=== PATIENT | female | born 1935 | race Caucasian/White ===

== ENCOUNTER 2017-08-03 14:02 | Outpatient (CLI) | payer MEDICARE ==
--- NOTE | 2017-08-03 16:08 | HP ---
DATE OF SERVICE: 08/03/2017. HISTORY OF PRESENT ILLNESS: Ms. Mirian Horner is a very pleasant 82-year-old accompanied by her imtiaz lynn who presents to the Wound Center for evaluation of 2 pressure ulcerations of the left buttock , which were first noted approximately 1 month ago. The patient's daughter states that Ms. Horner roth s been receiving dressing changes 2 times per week with the assistance of Home Health. The patient's daughter states that the dressing changes consist of a "dry bandage." The patient apparently has be en receiving dressing changes with the assistance of Home Health for the past 3 weeks. The patient i s also taking cephalexin as per Dr. Seay, which was initiated approximately 1 week ago. The lee ent's daughter states that Ms. Horner has a caregiver who is present around the clock. The patient's daughter states that Ms. Horner resides in her own home. PAST MEDICAL HISTORY: 1. Primary lateral sclerosis. 2. Osteoarthritis. 3. Restless leg syndrome. PAST SURGICAL HISTORY: Total right knee arthroplasty. MEDICATIONS: 1. Baclofen. 2. Potassium. 3. Melatonin. 4. Aleve. 5. Mirtazapine. 6. Pramipexole. 7. Dexilant. 8. Tizanidine. 9. Sertraline. 10. Cephalexin. ALLERGIES: No known diagnosed allergies. SOCIAL HISTORY: Social history is negative for tobacco or ETOH use. FAMILY HISTORY: Family history is negative for diabetes mellitus or coronary artery disease. PHYSICAL EXAMINATION: VITAL SIGNS: Temperature 97.8, pulse 68, respirations 18, blood pressure 196/82. GENERAL: An 82-year-old female lying on stretcher in examination room, in no acute distress. HEENT: Normocephalic, atraumatic. NECK: No nuchal rigidity. CHEST: Clear to auscultation. CARDIOVASCULAR: Regular rate and rhythm. ABDOMEN: Soft. EXTREMITIES: No clubbing or cyanosis. BACK: Two ulcerations of the left buttock are present, which measure approximately 2.2 x 2.3 cm and 2.2 x 2.4 cm. The ulceration of the left inferior buttock contains necrotic tissue within the wound margins. The necrotic tissue present within the wound margins was debrided with an excisional full-t hickness debridement with the use of scissors. No purulent drainage is associated with the wound. N o cellulitis of the left buttock is appreciated. No maceration of the skin of the periwound is noted . ASSESSMENT AND PLAN: 1. Pressure ulcerations of left buttock as described above. Dressing changes of Medihoney, 4 x 4s a nd ABDs secured with tape will be initiated today. These dressing changes are to be performed every other day or alternatively three times per week after cleansing and irrigation with the assistance of Home Health. The patient is to continue cephalexin as per Dr. Seay. I will see . Evens oropeza adiel in 3 weeks. The importance of offloading and proper nutrition in achieving the healing of the ulce rations has been discussed with the patient's daughter today. 2. Primary lateral sclerosis. 4. Osteoarthritis. 5. Restless leg syndrome.
== END 2017-08-03 14:03 | disposition home or self-care (01) ==
LOC: WCC 14:02
PROVIDERS: ATTEND Family Medicine
DX: L89.329 Pressure ulcer of left buttock, unspecified stage (principal); M19.90 Unspecified osteoarthritis, unspecified site; G12.23 Primary lateral sclerosis; G25.81 Restless legs syndrome

== ENCOUNTER 2017-08-29 14:53 | Outpatient (CLI) | payer MEDICARE ==
--- NOTE | 2017-08-29 16:20 | PRG ---
DATE OF SERVICE: 08/29/2017 HISTORY: Ms. Mirian Horner is a very pleasant 82-year-old accompanied by her and daughter , who presents to the Wound Center for evaluation of 2 pressure ulcerations of the left buttock, whic h were first noted approximately 1 month prior to the patient's initial presentation to the Wound [facility]. The patient's daughter stated that Ms. Horner had been receiving dressing changes 2 times per w [place] with the assistance of Home Health. When the patient initially presented to the Wound Center, th e patient's daughter stated that the dressing changes consisted of a "dry bandage." The patient had been receiving dressing changes with the assistance of Home Health for 3 weeks prior to the patient's initial visit to the Wound Center. The patient had also been taking cephalexin as per Dr. Seay beginning 1 week prior to the patient's initial visit to the Wound Center. The patient's daughter pr eviously stated that Ms. Horner resides in her own home. The patient's daughter stated that Ms. Prakash gallagher does have a caregiver, who is present around the clock. After being seen in the Wound Center, kathryn ssing changes of Medihoney were initiated. The patient has been receiving these dressing changes monik ry other day after cleansing and irrigation with the assistance of Home Health and a caregiver. PHYSICAL EXAMINATION: VITAL SIGNS: Temperature 97.6, pulse 76, respirations 16, blood pressure 155/67. EXTREMITIES: Two ulcerations of the left buttock are present. The superior ulceration measures appr oximately 1.4 x 1.4 cm. The inferior ulceration of the left buttock measures approximately 2.2 x 2.3 cm. The depth of the wound is 3.8 cm. Necrotic and nonviable tissue present within the wound sabra ns was debrided with an excisional full-thickness debridement with the use of scissors. No purulent drainage is associated with the wound. No erythema of the skin surrounding the wound is present. No maceration of the skin of the periwound is noted. No bone is palpable within the wound margins on t codey's exam. ASSESSMENT AND PLAN: 1. Pressure ulcerations of left buttock as described above. Arrangements will be made for the initi ation of negative pressure therapy for the left inferior buttock wound. Once the wound VAC becomes a vailable, the patient is to receive dressing changes of the wound VAC 3 times per week after cleansin g and irrigation with the assistance of Home Health for the inferior buttock wound for the superior b uttock wound, dressing changes of Medihoney and bordered gauze are to be performed at the time of wou nd VAC dressing changes Until the wound VAC becomes available, dressing changes of Medihoney, gauze, and an ABD are to be continued every other day after cleansing and irrigation with the assistance of Home Health and the patient's caregiver. The patient's daughter and understand and are in ag reement with the preceding treatment plan. I will see Ms. Horner again in two weeks after negative p ressure therapy has been initiated. The importance of offloading and proper nutrition in achieving t he healing of the ulcerations has again been discussed with the patient's daughter today. 2. Primary lateral sclerosis. 3. Osteoarthritis. 4. Restless leg syndrome.
== END 2017-08-29 14:54 | disposition home or self-care (01) ==
LOC: WCC 14:53
PROVIDERS: ATTEND Family Medicine
DX: L89.329 Pressure ulcer of left buttock, unspecified stage (principal); G12.23 Primary lateral sclerosis; M19.90 Unspecified osteoarthritis, unspecified site; G25.81 Restless legs syndrome
CPT/HCPCS: 11042

== ENCOUNTER 2017-09-22 10:44 | Outpatient (CLI) | payer MEDICARE ==
--- NOTE | 2017-09-22 12:02 | PRG ---
DATE OF SERVICE: 09/22/2017 HISTORY: Ms. Mirian Horner is a very pleasant 82-year-old accompanied by her son who presents to the Wound Center for evaluation of 2 pressure ulcerations of the left buttock, which were first noted approximately 1 month prior to the patient's initial presentation to the Wound Center. The patient' s daughter stated that Ms. Horner had been receiving dressing changes 2 times per week with the alana hansa of [facility]. When the patient initially presented to the Wound Center, the patient's daught er stated that the dressing changes consisted of a "dry bandage". The patient had been receiving kathryn ssing changes with the assistance of Home Health for 3 weeks prior to the patient's initial visit to the Wound Center. The patient has also been taking cephalexin as per Dr. Seay beginning 1 week p rior to the patient's initial visit to the Wound Center. The patient's daughter previously stated th at Ms. Horner resides in her own home. The patient's daughter stated that Ms. Horner does have a car egiver who was present around the clock. After being seen in the Wound Center, dressing changes of Dinora zuniga were initiated. The patient received these dressing changes every other day after cleansing and irrigation with the assistance of Home Health and a caregiver. Since the patient's visit to the Wound Center on 08/29/2017, negative pressure therapy has been initiated for the pressure ulceration s of the left buttock. PHYSICAL EXAMINATION: VITAL SIGNS: Temperature 97.5, pulse 73, respirations 18, blood pressure 130/60. EXTREMITIES: Two ulcerations of the left buttock are present. The superior ulceration measures appr oximately 1.2 x 1.3 cm. The inferior ulceration of the left buttock measures approximately 1.0 x 1.3 cm. A tunnel is associated with the wound, which is approximately 5 cm in length. Granulation tiss ue is present within the wound margins. Nonviable tissue present within the wound margins was debrid ed with an excisional full-thickness debridement. No purulent drainage is associated with the wound. No erythema of the skin surrounding the wound is present. No maceration of the skin of the periwou nd is noted. No bone is palpable within the wound margins on exam today. ASSESSMENT AND PLAN: 1. Pressure ulcerations of left buttock as described above. Negative pressure therapy for the left inferior buttock wound will be continued with dressing changes of the wound VAC 3 times per week with the assistance of Home Health. For the left superior buttock wound, dressing changes of Medihoney a nd bordered gauze are to be performed at the time of wound VAC dressing changes. Orders will be kruse smitted to Home Health for offloading of the pressure ulcerations with position changes q.2 hours. A lbumin and prealbumin levels will also be obtained. The patient will also be placed on Ernesto, Argina id or Pro-Stat to improve her nutritional status. The patient's son understands and is in agreement with the preceding treatment plan. He states he will accompany Ms. Horner to her followup visit in 2 weeks. 2. Primary lateral sclerosis. 3. Osteoarthritis. 4. Restless leg syndrome.
== END 2017-09-22 10:45 | disposition home or self-care (01) ==
LOC: WCC 10:44
PROVIDERS: ATTEND Family Medicine
DX: L89.329 Pressure ulcer of left buttock, unspecified stage (principal); G12.23 Primary lateral sclerosis; M19.90 Unspecified osteoarthritis, unspecified site; G25.81 Restless legs syndrome
CPT/HCPCS: 11042

== ENCOUNTER 2017-10-12 15:58 | Outpatient (CLI) | payer MEDICARE ==
--- NOTE | 2017-10-13 08:06 | PRG ---
DATE OF SERVICE: 10/12/2017 HISTORY: Ms. Mirian Horner is a very pleasant 82-year-old accompanied by her daughter who present s to the Wound Center for evaluation of 2 pressure ulcerations of the left buttock, which were first noted approximately 1 month prior to the patient's initial presentation to the Wound Center. The pa netta's daughter stated that Ms. Horner has been receiving dressing changes 2 times per week with the assistance of Home Health. When the patient initially presented to the Wound Center the patient's imtiaz lynn stated that the dressing changes consisted of a "dry bandage". The patient has been receivin g dressing changes with the assistance of Home Health for 3 weeks prior to the patient's initial visi t to the Wound Center. The patient was also taking cephalexin as per Dr. Seay beginning 1 week p rior to the patient's initial visit to the Wound Center. The patient's daughter previously stated th at Ms. Horner resides in her own home. The patient's daughter stated that Ms. Horner does have a car egiver who is present around the clock. After being seen in the Wound Center, dressing changes of Me dihoney were initiated. The patient received these dressing changes every other day after cleansing and irrigation with the assistance of Home Health and a caregiver. Subsequently, negative pressure t herapy was initiated for one of the pressure ulcerations of the left buttock. The patient still rece salvador dressing changes of Medihoney for the other left buttock ulceration. PHYSICAL EXAMINATION: VITAL SIGNS: Temperature 98.4, pulse 76, respirations 22, blood pressure 165/72. EXTREMITIES: Two ulcerations of the left buttock are present. The superior ulceration measures appr oximately 1.5 x 1.0 cm. The inferior ulceration of the left buttock measures approximately 0.5 x 0.5 cm. A tunnel is associated with the wound which is again approximately 5 cm in length. Granulation tissue is present within the wound margins. Nonviable tissue present within the wound margins was d ebrided with an excisional full-thickness debridement. No purulent drainage is associated with the w ound. No erythema of the skin surrounding the wound is present. No maceration of the skin of the pe riwound is noted. No bone is palpable within the wound margins on today's exam. ASSESSMENT AND PLAN: 1. Pressure ulcerations of left buttock as described above. Negative pressure therapy for the left inferior buttock wound will be continued with dressing changes of the wound VAC 3 times per week with the assistance of Home Health. Orders will be transmitted to Home Health for packing of the wound w ith GranuFoam or VersaFoam to the greatest depth of the wound. For the left superior buttock wound, dressing changes of Medihoney and bordered gauze will be continued at the time of wound VAC dressing changes. Orders will again be transmitted to Home Health for offloading of the pressure ulcerations with position changes q.2h. The patient will continue a nutritional supplement which was initiated gage bsequent to the patient's last visit. The patient's last albumin level returned 3.3. The patient's last prealbumin level returned 19.0. Both were obtained on 09/26/2017. I will see Ms. Horner again in 2 weeks. 2. Primary lateral sclerosis. 3. Osteoarthritis. 4. Restless leg syndrome.
== END 2017-10-12 15:59 | disposition home or self-care (01) ==
LOC: WCC 15:58
PROVIDERS: ATTEND Family Medicine
DX: L89.329 Pressure ulcer of left buttock, unspecified stage (principal); G25.81 Restless legs syndrome; G12.23 Primary lateral sclerosis; M19.90 Unspecified osteoarthritis, unspecified site

== ENCOUNTER 2017-11-23 10:51 | Outpatient (CLI) | payer MEDICARE ==
--- NOTE | 2017-11-23 12:08 | PRG ---
DATE OF SERVICE: 11/23/2017 SUBJECTIVE: Ms. Mirian Horner is a very pleasant 82-year-old accompanied by her daughter who pres ents to the Wound Center for evaluation of 2 pressure ulcerations of the left buttock, which were fi rst noted approximately 1 month prior to the patient's initial presentation to the Wound Center. The patient's daughter stated that Ms. Horner had been receiving dressing changes 2 times per week with the assistance of home health. When the patient initially presented to the Wound Center, the patient 's daughter stated that the dressing changes consisted of a "dry bandage". The patient had been rece iving dressing changes with the assistance of home health for 3 weeks prior to the patient's initial visit to the Wound Center. The patient was also taking cephalexin as per Dr. Seay beginning 1 we prior to the patient's initial visit to the Wound Center. The patient's daughter previously state d that Ms. Horner resides in her own home. The patient's daughter stated that Ms. Horner does have a caregiver who was present around the clock. After being seen in the Wound Center, dressing changes of Medihoney were initiated. The patient received these dressing changes every other day after clean sing and irrigation with the assistance of home health and a caregiver. Subsequently, negative press ure therapy was initiated for one of the pressure ulcerations of the left buttock. The patient still receives dressing changes of Medihoney for the other left buttock ulceration. OBJECTIVE: VITAL SIGNS: Temperature 97.6, pulse 73, respirations 20, blood pressure 122/56. EXTREMITIES: Two ulcerations of the left buttock are present. The superior ulceration measures appr oximately 0.7 x 0.6 cm. The inferior ulceration of the left buttock measures approximately 1.1 x 1.3 cm. The depth of the wound is approximately 4.5 cm. Granulation tissue is present within the wound margins. Nonviable tissue present within the wound margins was debrided with an excisional full-thi ckness debridement. A sample of granulation tissue within the wound margins was excised with the use of scissors and sent for aerobic and anaerobic cultures. No purulent drainage is associated with th e wound. No erythema of the skin surrounding the wound is present. No maceration of the skin of the periwound is noted. No bone is palpable within the wound margins on exam today. ASSESSMENT AND PLAN: 1. Pressure ulcerations of left buttock as described above. Negative pressure therapy for the left inferior buttock wound will be discontinued. Orders will be transmitted to home health for dressing changes of Medihoney and gauze for both wounds on a daily basis after cleansing and irrigation. Orde rs will again be transmitted to home health for offloading of the pressure ulcerations with position changes q.2 hours. Albumin and prealbumin levels will be obtained again. I have discussed the impor tance of nutrition and offloading in achieving the healing of the pressure ulcerations with both the patient and her daughter. I will see Ms. Horner again in four weeks. 2. Primary lateral sclerosis. 3. Osteoarthritis. 4. Restless leg syndrome.
[2017-11-23] MEDS ORDERED: Sodium Chloride 0.9% 15 ML NEB ONE (14:30)
== END 2017-11-23 10:52 | disposition home or self-care (01) ==
LOC: WCC 10:51
PROVIDERS: ATTEND Family Medicine
DX: L89.329 Pressure ulcer of left buttock, unspecified stage (principal); G12.23 Primary lateral sclerosis; M19.90 Unspecified osteoarthritis, unspecified site; G25.81 Restless legs syndrome
CPT/HCPCS: 87070; 87205; A4218

== ENCOUNTER 2018-02-01 11:00 | Outpatient (CLI) | payer MEDICARE ==
--- NOTE | 2018-02-01 12:55 | PRG ---
DATE OF SERVICE: 02/01/2018 SUBJECTIVE: Ms. Mirian Horner is a very pleasant 83-year-old, accompanied by her daughter, who presents to the Wound Center for evaluation of a pressure ulceration of the left buttock. The patient has been receiving dressing changes of Medihoney and gauze on a daily basis after cleansing and irrigation with the assistance of Home Health and family members. The other pressure ulceration with which the patient initially presented to the Wound Center has healed completely. The patient's daughter reports no other concerns. The patient has not had fever or chills. PHYSICAL EXAMINATION: VITAL SIGNS: Temperature 98.1, pulse 71, respirations 16, blood pressure 136/60. EXTREMITIES: One ulceration of the left buttock is present, which measures approximately 0.5 x 1.0 cm. The depth of the wound is approximately 5 cm. The depth of the wound at the time of the patient's visit on 11/23/2017 was approximately 4.5 cm. Nonviable tissue present within the wound margins was debrided with an excisional full-thickness debridement. No purulent drainage is associated with the wound. No erythema of the skin surrounding the wound is present. No maceration of the skin of the periwound is noted. No bone is palpable with a cotton-tipped applicator on exam today. ASSESSMENT AND PLAN: 1. Pressure ulceration of left buttock as described above. Dressing changes of Medihoney, Roel, and Mepilex Border are to be performed three times per week after cleansing and irrigation with the assistance of Home Health. Orders will also be transmitted to Home Health for offloading of the pressure ulcerations with position changes q.2 hours. The patient's daughter understands the importance of offloading and achieving the healing of the ulceration. Plain films of the pelvis will be obtained to look for findings suggestive of osteomyelitis. MRI of the pelvis with and without contrast will also be obtained and plain films reveal no findings consistent with osteomyelitis. I will see Ms. Horner again after imaging is complete. 2. Primary lateral sclerosis. 3. Osteoarthritis. 4. Restless legs syndrome. Job ID: [id number]
== END 2018-02-01 11:01 | disposition home or self-care (01) ==
LOC: WCC 11:00
PROVIDERS: ATTEND Family Medicine
DX: L89.329 Pressure ulcer of left buttock, unspecified stage (principal); G12.23 Primary lateral sclerosis; M19.90 Unspecified osteoarthritis, unspecified site; G25.81 Restless legs syndrome

== ENCOUNTER 2018-04-17 11:44 | Outpatient (CLI) | payer MEDICARE ==
--- NOTE | 2018-04-17 12:20 | PRG ---
DATE OF SERVICE: 04/17/2018 HISTORY: Ms. Mirian Horner is a very pleasant 83-year-old, accompanied by her daughter, who presents to the Wound Center for evaluation of a pressure ulceration of the left buttock. The patient has been receiving dressing changes of Medihoney and gauze on a daily basis after cleansing and irrigation with the assistance of Home Health and family members. Since the patient's last visit, Ms. Horner has been seen by Dr. Seay and p.o. pain medication prescribed for a fracture at the base of the right femoral head noted on plain films of the pelvis from 02/06/2018. OBJECTIVE: VITAL SIGNS: Temperature 97.9, pulse 72, and blood pressure 142/65. EXTREMITIES: One ulceration of the left buttock is present, which measures approximately 0.8 x 0.8 cm. The dimensions of the wound at the time of the patient's last visit were approximately 0.5 x 1.0 cm. The depth of the wound is approximately 5 cm. The depth of the wound at the time of the patient's visit on 02/01/2018 was also approximately 5 cm. Nonviable tissue present within the wound margins was debrided with an excisional full-thickness debridement with the use of a curette. No purulent drainage is associated with the wound. No erythema of the skin surrounding the wound is present. No maceration of the skin of the periwound is noted. The bone is palpable with a curette on exam today. ASSESSMENT AND PLAN: 1. Pressure ulceration of left buttock as described above. Dressing changes of Medihoney, gauze, and Mepilex border will be continued on a daily basis after cleansing and irrigation with the assistance of Home Health and family members. Orders will also be transmitted to Home Health for offloading of the pressure ulceration with position changes q.2 hours. I will also discuss the treatment plan with Dr. Seay. Albumin and pre-albumin levels will also be obtained. 2. Primary lateral sclerosis. 3. Osteoarthritis. 4. Restless legs syndrome. Job ID: [id number]
[2018-04-17] MEDS ORDERED: Sodium Chloride 0.9% 15 ML NEB ONE (17:29)
== END 2018-04-17 11:45 | disposition home or self-care (01) ==
LOC: WCC 11:44
PROVIDERS: ATTEND Family Medicine
DX: L89.329 Pressure ulcer of left buttock, unspecified stage (principal); G12.23 Primary lateral sclerosis; G25.81 Restless legs syndrome; M19.90 Unspecified osteoarthritis, unspecified site
CPT/HCPCS: 11042; A4218

== ENCOUNTER → 2018-05-19 | Day surgery (SDC) | payer MEDICARE ==
--- NOTE | 2018-05-19 16:32 | SPC ---
FLUOROSCOPIC GUIDED ULTRASOUND WITH RIGHT UPPER EXTREMITY PICC LINE PLACEMENT: INDICATIONS: Need for long-term central venous access. TECHNIQUE: Informed consent was obtained. Pre-procedure ultrasound demonstrated a patent right brachial vein. The site overlying this region was prepped and draped in the usual sterile fashion. Buffered 1% Lido hua was administered to the overlying subcutaneous tissue. Under ultrasound guidance, a micropunct ure access kit was utilized to gain access to the right brachial vein. The guidewire was advanced to the level of the IVC. A 5 Kinyarwanda catheter sheath was then placed. A single-lumen PICC line, trimme d to 40 cm, was guided over the wire and through the sheath. The sheath and wire were removed. The catheter was positioned at the level of the cavoatrial junction. The catheter flushed and aspirated appropriately. Total fluoroscopic time was 3 minutes. Total exposure was 2926 mGy per cm2. IMPRESSION: Successful ultrasound and fluoroscopic guided right upper extremity peripherally inserted central cat heter line. POS: [facility]
== END ==
LOC: SPEC 12:52
PROVIDERS: ATTEND Internal Medicine
PROC: 02HV33Z Insertion of Infusion Device into Superior Vena Cava, Percutaneous Approach (ICD-10-PCS; principal; 2018-05-19)
PROC: B5181ZA Fluoroscopy of Superior Vena Cava using Low Osmolar Contrast, Guidance (ICD-10-PCS; 2018-05-19)
DX: N39.0 Urinary tract infection, site not specified (principal)
CPT/HCPCS: 36569; C1751

== ENCOUNTER 2018-05-29 15:50 | Outpatient (CLI) | payer MEDICARE ==
[~2018-05-29 15:50] MED LIST: Gadobenate Dimeglumine 529 MG/1 ML (20ML VIAL) ONE
--- NOTE | 2018-05-30 08:47 | MRI ---
MRI PELVIS WITH AND WITHOUT CONTRAST: HISTORY: L89.329, chronic ischial wound. COMPARISON: Pelvis radiograph from 2018. 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 There is loss of normal marrow signal withi n the left ischium with abnormal enhancement indicating osteomyelitis. This does extend to the poste rior margin of the inferior pubic ramus. Sacrum is without significant loss of marrow signal on the T1 imaging sequence. There is a large perineural cyst on the existing S2 and S3 nerve roots. MUSCLES: Abnormal edema within the left gluteus maximum muscle with pyomyositis. Large skin defect extending from the ischial tuberosity down to the ischium going through the gluteus muscle. TENDONS: There is high-grade tendonosis of both hamstring tendons worse on the left. MUSCLES: Inside the pyomyositis of the left gluteus maximum muscle, there is significant pelvic muscle atrophy . There is edema of the luteus medius and minimus muscle, likely denervation in nature. The pirifor mis muscles are also mildly edematous, likely denervation in nature. There is abnormal edema within the adductor musculature bilaterally and symmetric. INTRAPELVIC SOFT TISSUES: Multiple uterine fibroids. No significant free fluid within the pelvis. There is extensive soft tissue edema of the left buttock. IMPRESSION: 1. 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 There is pyomyositis of the left gluteus neli muscle. 2. Nonunion right femoral neck fracture. 3. Likely denervation edema of the pelvic musculature. POS: [facility]
== END 2018-05-29 15:51 | disposition home or self-care (01) ==
LOC: MRI 15:50
PROVIDERS: ATTEND Family Medicine
DX: S31.829D Unspecified open wound of left buttock, subsequent encounter (principal); M86.9 Osteomyelitis, unspecified; S72.001K Fracture of unspecified part of neck of right femur, subsequent encounter for closed fracture with nonunion
CPT/HCPCS: 72197; A9577

== ENCOUNTER 2018-07-02 17:30 | Emergency (ER) | payer MEDICARE ==
[2018-07-02] MEDS ORDERED: Cefuroxime Axetil 250 MG TAB PO SCH (20:00)
== END 2018-07-02 21:38 | disposition home or self-care (01) ==
LOC: ERS 17:30
DX: N39.0 Urinary tract infection, site not specified (principal); N13.9 Obstructive and reflux uropathy, unspecified; F32.9 Major depressive disorder, single episode, unspecified; G12.21 Amyotrophic lateral sclerosis
CPT/HCPCS: 99283

== ENCOUNTER → 2018-08-10 | Day surgery (SDC) | payer MEDICARE ==
[~2018-08-10] MED LIST changes: -Gadobenate Dimeglumine 529 MG/1 ML (20ML VIAL) ONE; +Heparin 1,000 UNITS/ML VIAL ONE; +Vancomycin HCl 1 GM in Premix Bag 1 BAG IVPB SCH; +cefTRIAXone\\ROCEPHIN 2 GM in Sodium Chloride 0.9% 100 ML IVPB SCH
--- NOTE | 2018-08-10 15:24 | SPC ---
Image guided PICC placement: 08/10/2018 HISTORY: 83-year-old female with osteomyelitis requiring long-term IV antibiotics. TECHNIQUE: The patient is alert and awake, and understands what is going on around her, but is unable to communi edvin or move. Because of her contracted state, this was a difficult procedure. Veins of bilateral upper extremity's were evaluated with ultrasound. The left cephalic vein was targeted. Signed informed proxy consent obtained. The lateral skin of the left arm was prepped and draped in us ual sterile fashion. Under ultrasound guidance, the left cephalic vein was punctured numerous times, but each time, the wire failed to advance. It was elected to terminate the procedure, and try again on a different day. IMPRESSION: Unsuccessful PICC placement attempt.
== END ==
LOC: ONC/OP 12:23
PROVIDERS: ATTEND Internal Medicine Infectious Disease
DX: B99.9 Unspecified infectious disease (principal); Z79.2 Long term (current) use of antibiotics
CPT/HCPCS: 36569; C1751; J1644

== ENCOUNTER → 2018-08-21 | Day surgery (SDC) | payer MEDICARE ==
--- NOTE | 2018-08-21 11:29 | SPC ---
[facility] CVP LINE PICC INITAL >5 History: Long-term IV access Comparison: PICC line attempt August 10, 2018 Findings: Patient was brought to the fluoroscopy suite. All questions were answered. Informed consent was obtained. Timeout performed. Patient's right arm was prepped and draped in normal sterile fashion. Using ultrasound guidance the r ight basilic vein was accessed. Over a wire and through a peel-away sheath a PICC was placed. Patient tolerated the procedure well without complication. Impression: Technically successful right basilic PICC placement. Fluoroscopy time: 0.5 minute. Dose area product: 1860 mGy centimeter squared.
== END ==
LOC: SPEC 09:13
PROVIDERS: ATTEND Internal Medicine
DX: N39.0 Urinary tract infection, site not specified (principal)
CPT/HCPCS: 36569; C1751